=== PATIENT | female | born 1960 | race Caucasian/White ===

== ENCOUNTER 2018-10-09 07:01 | Day surgery (SDC) | payer OTHER ==
[~2018-10-09 07:01] MED LIST: Lactated Ringers 1,000 ML IV SCH
[2018-10-09] MEDS ORDERED: VERSED 5 MG/5 ML IV ONE (07:02)
[2018-10-09] MEDS ORDERED: SUBLIMAZE 100 MCG/2 ML IV ONE (07:02)
[2018-10-09] MEDS ORDERED: Lactated Ringers 1,000 ML IV ONE ×2 (07:14→08:17)
[2018-10-09 10:42] VITALS: BP 131/78; PULSE 79; O2SAT 98
--- NOTE | 2018-10-11 07:35 | OP ---
SURGERY DATE/TIME: 10/09/2018904 PREOPERATIVE DIAGNOSIS: Age due for screening colonoscopy. POSTOPERATIVE DIAGNOSES: Age due for screening colonoscopy. PROCEDURES: 1) Colonoscopy to cecum. 2) IV sedation approximately 30 minutes. SURGEON: Rajendra Bermeo M.D. ANESTHESIA: IV sedation with 5 mg of Versed and 75 mcg of Fentanyl. SPECIMEN: None. ESTIMATED BLOOD LOSS: None. COMPLICATIONS: None. FINDINGS: Normal exam. PATIENT PRESENTATION: This patient presents for age due for screening colonoscopy. After discussing risks, benefits of colonoscopy the patient wished to proceed. DESCRIPTION OF PROCEDURE: The patient was brought to the endoscopy suite placed on monitor. Under my direction nursing administered Versed and Fentanyl for a total of 5 and 75 for the length of the procedure. Rectal exam was performed without any abnormality except for a moderate sized thrombosed external hemorrhoid. The scope was gently advanced to the rectum. The scope was slowly and without difficulty advanced. The cecum, ileocecal valve and appendiceal orifice were clearly identified. The scope was slowly withdrawn and the colon further evaluated. Bowel prep was excellent. The scope was withdrawn into the rectum. Retroflexion performed. There really was not any significant internal hemorrhoids. The rectum desufflated and scope withdrawn. The only finding was the external hemorrhoid. The patient's next colonoscopy will be in ten years unless symptoms develop.
== END 2018-10-09 10:30 | disposition home or self-care (01) ==
LOC: SDC 07:01
PROVIDERS: ATTEND Surgery
DX: Z12.11 Encounter for screening for malignant neoplasm of colon (principal); K64.5 Perianal venous thrombosis
CPT/HCPCS: J2250; J3010